=== PATIENT | female | born 1975 | race Caucasian/White ===

== ENCOUNTER 2019-04-06 16:49 | Emergency (ER) | payer OTHER ==
[~2019-04-06] VITALS: Ht 162.6 cm; Wt 53.1 kg
[2019-04-06 17:28] LABS: CREATININE 0.8 mg/dL (0.6-1.3); POTASSIUM 3.3 mmol/L (3.5-5.1)
[2019-04-06] MEDS ORDERED: FLEXERIL PO (17:43)
[2019-04-06 17:52] VITALS: BP 153/96
== END 2019-04-06 17:54 | disposition home or self-care (01) ==
LOC: M.ERS 16:49
PROVIDERS: Emergency Medicine Emergency Medical Services
DX: S76.912A Strain of unspecified muscles, fascia and tendons at thigh level, left thigh, initial encounter (principal); X58.XXXA Exposure to other specified factors, initial encounter; Y93.89 Activity, other specified; Y92.89 Other specified places as the place of occurrence of the external cause; Y99.8 Other external cause status; F17.210 Nicotine dependence, cigarettes, uncomplicated